=== PATIENT | female | born 1985 | race Two or more races ===

== ENCOUNTER 2017-03-27 05:33 | Inpatient (IN) | payer BC ==
[~2017-03-27 05:33] MED LIST: Citric Acid/Sodium Citrate Solution 30 ML Cup PO ONE; Lactated Ringers 1,000 ML IV SCH; Metoclopramide 10 MG/2 ML SDV IVPUSH ONE; Oxytocin/Lactated Ringers 10 UNIT/1,000 ML BAG IV SCH; Sodium Chloride 0.9% 10 ML Syringe FLUSH PRN; ceFAZolin 2 GM in Premix Bag 1 BAG IV ONE
[2017-03-27] MEDS ORDERED: Citric Acid/Sodium Citrate Solution 30 ML Cup ONE (06:18)
[2017-03-27] MEDS ORDERED: Bupivacaine 0.5% 30 ML SDV ONE (06:18)
[2017-03-27] MEDS ORDERED: Metoclopramide 10 MG/2 ML SDV ONE (06:18)
[2017-03-27] MEDS ORDERED: ceFAZolin 1 GM Vial ONE (06:41)
[2017-03-27] MEDS ORDERED: Ketorolac 30 MG/ML SDV ONE (06:41)
[2017-03-27] MEDS ORDERED: Phenylephrine 1% 10 MG/ML SDV ONE (06:41)
[2017-03-27] MEDS ORDERED: Ondansetron 4 MG/2 ML SDV ONE (06:41)
[2017-03-27] MEDS ORDERED: Oxytocin 10 Units/1 ML SDV ONE (06:41)
[2017-03-27] MEDS ORDERED: Lactated Ringers 1,000 ML ONE (06:41)
[2017-03-27] MEDS ORDERED: Morphine PF 10 MG/10 ML SDV ONE (06:42)
--- NOTE | 2017-03-27 06:50 | PCM.PREANE ---
Preanesthetic Assessment - Anesthesia/Transfusion/Family Hx Anesthesia History: Prior Anesthesia Without Reaction (only spinal anesthietics with previous c-sections) Family History of Anesthesia Reaction: No Transfusion History: No Prior Transfusion(s) Intubation History: Unknown - Review of Systems General: No Symptoms Pulmonary: No Symptoms Cardiovascular: No Symptoms Gastrointestinal: No symptoms (GERD), Constipation Neurological: No Symptoms Other: Reports: Easy Bruising, Thyroid Problems (hypothyroid) - Physical Assessment NPO Status Date: 03/26/17 NPO Status Time: 22:00 Pulse: 83 O2 Sat by Pulse Oximetry: 99 Respiratory Rate: 16 Blood Pressure: 106/84 Temperature: 36.2 C Vital Signs: Last Vital Signs Temp 36.2 C 03/27/17 05:55 Pulse 83 03/27/17 05:55 Resp 16 03/27/17 05:55 BP 106/84 03/27/17 05:55 Pulse Ox 99 03/27/17 05:55 Height: 1.57 m Weight: 80.286 kg ASA Class: 2 Mental Status: Alert & Oriented x3 Airway Class: Mallampati = 2 Dentition: Reports: Normal Dentition, Caries Thyro-Mental Finger Breadths: 3 Mouth Opening Finger Breadths: 3 ROM/Head Extension: Full Lungs: Clear to auscultation, Normal respiratory effort Cardiovascular: Regular Rate, Regular Rhythm, No Murmurs - Lab Values: Laboratory Last Values WBC 7.60 K/mm3 (3.98-10.04) 03/27/17 06:20 RBC 4.15 M/mm3 (3.98-5.22) 03/27/17 06:20 Hgb 12.1 gm/L (11.2-15.7) 03/27/17 06:20 Hct 36.3 % (34.1-44.9) 03/27/17 06:20 MCV 87.5 fl (79.4-94.8) 03/27/17 06:20 MCH 29.2 pg (25.6-32.2) 03/27/17 06:20 MCHC 33.3 g/dl (32.2-35.5) 03/27/17 06:20 RDW Std Deviation 43.7 fL (36.4-46.3) 03/27/17 06:20 Plt Count 223 K/mm3 (182-369) 03/27/17 06:20 MPV 9.6 fl (9.4-12.3) 03/27/17 06:20 Neut % (Auto) 64.1 % (34.0-71.1) 03/27/17 06:20 Lymph % (Auto) 24.7 % (19.3-51.7) 03/27/17 06:20 [place] % (Auto) 9.3 % (4.7-12.5) 03/27/17 06:20 Eos % (Auto) 1.1 (0.7-5.8) 03/27/17 06:20 Baso % (Auto) 0.1 % (0.1-1.2) 03/27/17 06:20 Neut # (Auto) 4.87 K/mm3 (1.56-6.13) 03/27/17 06:20 Lymph # (Auto) 1.88 K/mm3 (1.18-3.74) 03/27/17 06:20 [place] # (Auto) 0.71 K/mm3 (0.24-0.36) H 03/27/17 06:20 Eos # (Auto) 0.08 K/mm3 (0.04-0.36) 03/27/17 06:20 Baso # (Auto) 0.01 K/mm3 (0.01-0.08) 03/27/17 06:20 Above labs reviewed and noted. - Allergies Allergies/Adverse Reactions: Allergies Allergy/AdvReac Type Severity Reaction Status Date / Time No Known Allergies Allergy Verified 03/27/17 02:05 - Anesthesia Plan Pre-Op Medication Ordered: None - Acknowledgements Anesthesia Type Planned: Spinal Pt an Appropriate Candidate for the Planned Anesthesia: Yes Alternatives and Risks of Anesthesia Discussed w Pt/Guardian: Yes Pt/Guardian Understands and Agrees with Anesthesia Plan: Yes PreAnesthesia Questionnaire - Past Health History Medical/Surgical History: Denies Medical/Surgical History Other OB/BYN History: 2 prior c sections 2013, 2004 Endocrine/Metabolic History: Reports: Hypothyroidism - SUBSTANCE USE Smoking Status *Q: Never Smoker Recreational Drug Use History: No - CURRENT (IN HOUSE) MEDS Current Meds: Current Medications Lactated Ringer's (Ringers, Lactated) 1,000 mls @ 125 mls/hr IV ASDIRECTED JORDAN Oxytocin/Lactated Ringer's (Pitocin In Lr 10 Units/1,000 Ml) 10 unit in 1,000 mls @ 100 mls/hr IV ASDIRECTED JORDAN Sodium Chloride (Saline Flush) 10 ml FLUSH ASDIRECTED PRN PRN Reason: Keep Vein Open Discontinued Medications Bupivacaine HCl (Marcaine 0.5%) Confirm Administered Dose 30 ml .ROUTE .STK-MED ONE Stop: 03/27/17 06:19 Cefazolin Sodium (Ancef) Confirm Administered Dose 2 gm .ROUTE .STK-MED ONE Stop: 03/27/17 06:42 Citric Acid/Sodium Citrate (Bicitra Solution) 30 ml PO ONETIME ONE Stop: 03/27/17 01:52 Citric Acid/Sodium Citrate (Bicitra Solution) Confirm Administered Dose 30 ml .ROUTE .STK-MED ONE Stop: 03/27/17 06:19 Cefazolin Sodium/Dextrose 2 gm (/ Premix) 50 mls @ 100 mls/hr IV ONETIME ONE Stop: 03/27/17 02:20 Lactated Ringer's (Ringers, Lactated) Confirm Administered Dose 1,000 mls @ as directed .ROUTE .ST-MED ONE Stop: 03/27/17 06:42 Ketorolac Tromethamine (Toradol) Confirm Administered Dose 30 mg .ROUTE .ST- MED ONE Stop: 03/27/17 06:42 Metoclopramide HCl (Reglan) 10 mg IVPUSH ONETIME ONE Stop: 03/27/17 01:52 Metoclopramide HCl (Reglan) Confirm Administered Dose 10 mg .ROUTE .STK-MED ONE Stop: 03/27/17 06:19 Morphine Sulfate (Duramorph Pf) Confirm Administered Dose 10 mg .ROUTE .STK-MED ONE Stop: 03/27/17 06:43 Ondansetron HCl (Zofran) Confirm Administered Dose 4 mg .ROUTE .STK-MED ONE Stop: 03/27/17 06:42 Oxytocin (Pitocin) Confirm Administered Dose 20 unit .ROUTE .STK-MED ONE Stop: 03/27/17 06:42 Phenylephrine HCl (Denis-Synephrine) Confirm Administered Dose 10 mg .ROUTE .STK- MED ONE Stop: 03/27/17 06:42
--- NOTE | 2017-03-27 07:15 | PCM.LDHP ---
L&D History of Present Illness - General Date of Service: 03/27/17 Admit Problem/Dx: Patient Status Order with Admit Dx/Problem 03/27/17 01:51 Patient Status [ADT] Routine Admission Diagnosis/Problem Admission Diagnosis/Problem section Source of Information: Patient History Limitations: Reports: No Limitations - History of Present Illness Introduction:: 31-year-old 002 [place] 04/03/17 estimated gestational age 39 weeks 0 days patient has had 2 prior sections both in [place] plan repeat section today group B strep negative history of hypothyroidism blood type B+ antibody screen negative TSH 1.577 diabetes screen 104 hemoglobin hematocrit 11.3/34.4 platelets 275,000 B strep negative free T4 1.22. Accessory lobe to the placenta suggested on ultrasound will confirm N Location, : Reports: Abdomen, Lower back Quality: Reports: Ache, Dull, Pressure Severity: Mild Pain Score: 6 Improves with: Reports: None Worsens with: Reports: None Associated Symptoms: Reports: N - Related Data Allergies/Adverse Reactions: Allergies Allergy/AdvReac Type Severity Reaction Status Date / Time No Known Allergies Allergy Verified 03/27/17 02:05 Past Medical History - Past Health History Medical/Surgical History: Denies Medical/Surgical History Other OB/BYN History: 2 prior c sections 2013, 2004 Endocrine/Metabolic History: Reports: Hypothyroidism Social & Family History - Family History Family Medical History: Noncontributory - Tobacco Use Smoking Status *Q: Never Smoker - Caffeine Use Caffeine Use: Reports: Coffee Other Caffeine Use: 1 per day - Recreational Drug Use Recreational Drug Use: No H&P Review of Systems - Review of Systems: Review Of Systems: See Below General: Reports: No Symptoms HEENT: Reports: No Symptoms Pulmonary: Reports: No Symptoms Cardiovascular: Reports: No Symptoms Gastrointestinal: Reports: No Symptoms Genitourinary: Reports: No Symptoms Musculoskeletal: Reports: No Symptoms Skin: Reports: No Symptoms Psychiatric: Reports: No Symptoms Neurological: Reports: No Symptoms Hematologic/Lymphatic: Reports: No Symptoms Immunologic: Reports: No Symptoms L&D Exam - Exam Exam: See Below - Vital Signs Vital Signs: Last Vital Signs Temp 97.2 F 03/27/17 07:01 Pulse 83 03/27/17 07:01 Resp 16 03/27/17 07:01 BP 106/84 03/27/17 07:01 Pulse Ox 99 03/27/17 07:01 Weight: 177 lb - OB Specific Fundal Height In cm: 38 Contraction Duration (sec): 60 Contraction Frequency (min): 4 Contraction Intensity: Mild to Moderate Movement: Active Heart Tones: Present Heart Tones per Min: 140 Heart Rate (FHR) Variability: Moderate (6-25 bmp) Presentation: Vertex - Exam General: Alert, Oriented HEENT: Mucosa Moist & [place] Neck: Supple, Trachea Midline Lungs: Clear to Auscultation, Normal Respiratory Effort Cardiovascular: Regular Rate, Regular Rhythm Abdomen: Normal Bowel Sounds, Soft, Pelvis Stable Genitourinary: Normal external exam Extremities: Normal Inspection Skin: Warm, Dry, Intact Neurological: Reflexes Equal Bilateral Psychiatric: Alert, Normal Affect, Normal Mood - Patient Data Lab Results Last 24 hrs: Laboratory Results - last 24 hr 03/27/17 Range/Units 06:20 WBC 7.60 (3.98-10.04) K/mm3 RBC 4.15 (3.98-5.22) M/mm3 Hgb 12.1 (11.2-15.7) gm/L Hct 36.3 (34.1-44.9) % MCV 87.5 (79.4-94.8) fl MCH 29.2 (25.6-32.2) pg MCHC 33.3 (32.2-35.5) g/dl RDW Std Deviation 43.7 (36.4-46.3) fL Plt Count 223 (182-369) K/mm3 MPV 9.6 (9.4-12.3) fl Neut % (Auto) 64.1 (34.0-71.1) % Lymph % (Auto) 24.7 (19.3-51.7) % [place] % (Auto) 9.3 (4.7-12.5) % Eos % (Auto) 1.1 (0.7-5.8) Baso % (Auto) 0.1 (0.1-1.2) % Neut # (Auto) 4.87 (1.56-6.13) K/mm3 Lymph # (Auto) 1.88 (1.18-3.74) K/mm3 [place] # (Auto) 0.71 H (0.24-0.36) K/mm3 Eos # (Auto) 0.08 (0.04-0.36) K/mm3 Baso # (Auto) 0.01 (0.01-0.08) K/mm3 Result Diagrams: 03/27/17 06:20 - Problem List (1) delivery, delivered, current hospitalization SNOMED Code(s): 290588018 ICD Code: O82 - ENCOUNTER FOR DELIVERY WITHOUT INDICATION Status: Acute Current Visit: Yes (2) 39 weeks gestation of SNOMED Code(s): 06478545 ICD Code: Z3A.39 - 39 WEEKS GESTATION OF Status: Acute Current Visit: Yes (3) Accessory placenta SNOMED Code(s): 31197121 ICD Code: O43.199 - OTHER MALFORMATION OF PLACENTA, UNSPECIFIED TRIMESTER Status: Acute Current Visit: Yes Problem List Initiated/Reviewed/Updated: No Orders Last 24hrs: Active Orders 24 hr Category Date Time Status Patient Status [ADT] Routine ADT 03/27/17 01:51 Active Antiembolic Devices [RC] .Routine Care 03/27/17 01:56 Active Communication Order [RC] ROUTINE Care 03/27/17 01:51 Active Heart Tones [RC] PER UNIT ROUTINE Care 03/27/17 01:51 Active Peripheral IV Care [RC] . DIRECTED Care 03/27/17 01:52 Active Procedure Site Prep Instruct [RC] ASDIRECTED Care 03/27/17 01:51 Active VTE/DVT Education [RC] PER UNIT ROUTINE Care 03/27/17 01:56 Active Verify Patient Consent Obtain [RC] PER UNIT ROUTINE Care 03/27/17 01:51 Active Vital Signs [RC] PFP Care 03/27/17 01:51 Active TYPE AND SCREEN [BBK] Timed Lab 03/27/17 06:20 Received Lactated Ringers [Ringers, Lactated] 1,000 ml Med 03/27/17 02:00 Active IV ASDIRECTED Oxytocin/Lactated Ringers [Pitocin in LR 10 Units/1,000 Med 03/27/17 02:00 Active ML] 10 unit in 1,000 ml IV ASDIRECTED Sodium Chloride 0.9% [Saline Flush] Med 03/27/17 01:51 Active 10 ml FLUSH ASDIRECTED PRN DVT/VTE Prophylaxis Reflex [OM.PC] Routine Oth 03/27/17 01:51 Ordered Peripheral IV Insertion Adult [OM.PC] Routine Oth 03/27/17 01:51 Ordered Schedule Procedure [COMM] Per Unit Routine Oth 03/27/17 01:51 Ordered Resuscitation Status Routine Resus Stat 03/27/17 01:51 Ordered Medication Orders Lactated Ringer's (Ringers, Lactated) 1,000 mls @ 125 mls/hr IV ASDIRECTED JORDAN Oxytocin/Lactated Ringer's (Pitocin In Lr 10 Units/1,000 Ml) 10 unit in 1,000 mls @ 100 mls/hr IV ASDIRECTED JORDAN Sodium Chloride (Saline Flush) 10 ml FLUSH ASDIRECTED PRN PRN Reason: Keep Vein Open
[2017-03-27] MEDS ORDERED: ePHEDrine 50 MG/ML SDV IVPUSH PRN ×2 (08:08→09:09)
[2017-03-27] MEDS ORDERED: Ondansetron 4 MG/2 ML SDV IVPUSH PRN (08:08)
[2017-03-27] MEDS ORDERED: diphenhydrAMINE 50 MG/ML SDV IVPUSH PRN ×2 (08:08→09:09)
[2017-03-27] MEDS ORDERED: Meperidine PF 50 MG/ML Syringe IVPUSH PRN (08:08)
[2017-03-27] MEDS ORDERED: fentaNYL 100 MCG/2 ML SDV IVPUSH PRN (08:08)
[2017-03-27] MEDS ORDERED: HYDROmorphone 0.5 MG/0.5 ML Syringe IVPUSH PRN (08:08)
[2017-03-27] MEDS ORDERED: Phenylephrine 1 MG in Sodium Chloride 0.9% 10 ML IV SCH (08:15)
--- NOTE | 2017-03-27 08:50 | PCM.POSTAN ---
POST ANESTHESIA ASSESSMENT - MENTAL STATUS Mental Status: alert - VITAL SIGNS Pulse Rate: 75 SaO2: 96 Resp Rate: 12 Blood Pressure: 99/51 Temperature: 36.1 C - RESPIRATORY Respiratory Status: respiratory rate WNL, airway patent, O2 saturation stable - CARDIOVASCULAR CV Status: pulse rate WNL, blood pressure stable - GASTROINTESTINAL GI Status: no symptoms - POST OP HYDRATION Hydration Status: adequate & stable
--- NOTE | 2017-03-27 09:05 | PCM.OPNOTE ---
- General Post-Op/Procedure Note Date of Surgery/Procedure: 03/27/17 Operative Procedure(s): Repeat section Pre Op Diagnosis: Estimated gestational age 39 weeks, prior 2, 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 Post-Op Diagnosis: Same Anesthesia Technique: Spinal Primary Surgeon: Richard Tellez Secondary Surgeon: Igor Carrillo Anesthesia Provider: Sonya Dugan Nuclear Equipment Design Engineer: Sunshine Cotton (MS3) Fluid Replacement, Intraop: 1,000 Output, Urine Amount: 150 EBL in mLs: 500 Drain/Tube Comments:: Penn catheter Complications: None Condition: Good Free Text/Narrative:: General Post-Op/Procedure Note Date of Surgery/Procedure: 03/27/17 Operative Procedure(s): Repeat section Pre Op Diagnosis: 39 weeks gestation, prior section 2, 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 Post-Op Diagnosis: Same Anesthesia Technique: Spinal Primary Surgeon: Richard Tellez Secondary Surgeon: Igor Carrillo Anesthesia Provider: Sonya Dugan Nuclear Equipment Design Engineer: Sunshine Cotton (MS3) Fluid Replacement, Intraop: 1,000 Output, Urine Amount: 150 EBL in mLs: 500 Drain/Tube Comments:: Penn Complications: None Condition: Good Free Text/Narrative:: Patient was transported to operating room #[address] and functioning prior surgery Ancef 2 g given intravenously prior surgery spinal anesthesia placed patient Draped in sterile fashion timeout performed confirming name Ozzie Azar procedure repeat section adequate level of anesthesia was confirmed was brought to the operating room injecting 20 mL of 0.5% Marcaine without epinephrine area of the planned incision the Pfannenstiel incision was made and care was sharp section to into the anterior fascia peritoneal cavity entered without difficulty bladder flap created pushed caudad low segment transverse performed delivering a male liveborn 0809 hrs. on Monday03/27/17 weighing 8 lbs. 9 oz. Apgars 7/9 Dr. Tucker present and attended to the cord blood was collected from normal three-vessel cord placenta was removed manually and confirmed small approximately 8 x 8 cm excess relocated to the placenta placenta delivered Schultze manually discarded after examination. The endometrial cavity was inspected sponge needle pack asthma sharp count correct 1 the uterus closed in 2 layers first layer running locking suture of 0 Monocryl second layer horizontal imbricating suture modified [place] additional [id number] sutures taken in the midline in 3 areas for hemostasis both tubes and ovaries appeared normal clot screen from the gutters and cul-de-sac uterus pleasant abdominal cavity uterine incision reinspected no bleeding sponge needle pack asthma sharp count correct 2 and the abdominal cavity was closed with #1 PDS running suture irrigation carried out in the subcutaneous tissue and utilizing cautery to reduce scar tissue and allow better approximation of the skin closure the skin was closed with 3-0 Monocryl on Harvinder needle, Preneo applied patient transported to postanesthesia care unit in satisfactory condition no blood transfusions were required not anticipated Nusser condition should change clots were cleaned from the vagina prior to transport to postanesthesia care unit.
[2017-03-27] MEDS ORDERED: Acetaminophen 325 MG Tab PO PRN (09:09)
[2017-03-27] MEDS ORDERED: Lanolin 100% Cream 7 GM Tube TOP PRN (09:09)
[2017-03-27] MEDS ORDERED: Ondansetron 4 MG/2 ML SDV IV PRN (09:09)
[2017-03-27] MEDS ORDERED: Naloxone 0.4 MG/ML SDV IVPUSH PRN (09:09)
[2017-03-27] MEDS ORDERED: Docusate Sodium 100 MG Cap PO PRN (09:09)
[2017-03-27] MEDS ORDERED: Sodium Chloride 0.9% 10 ML Syringe FLUSH PRN (09:09)
[2017-03-27] MEDS ORDERED: Dextrose 5%-Lactated Ringers 1,000 ML IV SCH (09:15)
[2017-03-27] MEDS ORDERED: Dextrose 5%-0.45% NaCl 1,000 ML IV SCH (09:15)
[2017-03-27] MEDS: Simethicone 80 MG Tab.Chew PO SCH ×4 (10:28→21:46)
[2017-03-27] MEDS: Ketorolac 30 MG/ML SDV IVPUSH SCH ×2 (14:25→20:54)
[2017-03-28] MEDS: Ketorolac 30 MG/ML SDV IVPUSH SCH (02:32)
[2017-03-28] MEDS: Acetaminophen/oxyCODONE 325-5 MG Tab PO PRN ×2 (06:07→11:40)
[2017-03-28] MEDS ORDERED: Ibuprofen 600 MG Tab PO PRN (08:30)
--- NOTE | 2017-03-28 08:48 | PCM.PN ---
- General Info Date of Service: 03/28/17 Functional Status: Reports: pain controlled - Review of Systems General: Reports: No Symptoms HEENT: Reports: no symptoms Pulmonary: Reports: no symptoms Cardiovascular: Reports: No Symptoms Gastrointestinal: Reports: No symptoms Genitourinary: Reports: no symptoms Musculoskeletal: Reports: no symptoms Skin: Reports: no symptoms Neurological: Reports: No Symptoms Psychiatric: Reports: no symptoms - Patient Data Vitals - most recent: Last Vital Signs Temp 98.1 F 03/27/17 21:00 Pulse 76 03/27/17 21:00 Resp 14 03/28/17 06:56 BP 111/66 03/27/17 21:00 Pulse Ox 100 03/28/17 06:56 Weight - most recent: 177 lb I&O - last 24 hours: Intake & Output 03/27/17 03/28/17 03/28/17 22:59 06:59 14:59 Intake Total 1240 240 Output Total 825 1050 Balance 415 -1050 240 Lab Results last 24 hrs: Laboratory Results - last 24 hr 03/27/17 03/27/17 03/28/17 Range/Units 06:20 13:51 05:50 WBC 7.37 (3.98-10.04) K/mm3 RBC 3.93 L (3.98-5.22) M/mm3 Hgb 11.6 (11.2-15.7) gm/L Hct 34.7 (34.1-44.9) % MCV 88.3 (79.4-94.8) fl MCH 29.5 (25.6-32.2) pg MCHC 33.4 (32.2-35.5) g/dl RDW Std Deviation 44.2 (36.4-46.3) fL Plt Count 216 (182-369) K/mm3 MPV 10.1 (9.4-12.3) fl Neut % (Auto) 66.0 (34.0-71.1) % Lymph % (Auto) 23.6 (19.3-51.7) % [place] % (Auto) 9.2 (4.7-12.5) % Eos % (Auto) 0.8 (0.7-5.8) Baso % (Auto) 0.1 (0.1-1.2) % Neut # (Auto) 4.86 (1.56-6.13) K/mm3 Lymph # (Auto) 1.74 (1.18-3.74) K/mm3 [place] # (Auto) 0.68 H (0.24-0.36) K/mm3 Eos # (Auto) 0.06 (0.04-0.36) K/mm3 Baso # (Auto) 0.01 (0.01-0.08) K/mm3 [place] IgG Antibody Reactive (pos) (REACTIVE) Blood Type B POSITIVE Gel Antibody Screen Negative Med Orders - Current: Current Medications Acetaminophen (Tylenol) 650 mg PO Q4H PRN PRN Reason: mild pain or fever Diphenhydramine HCl (Benadryl) 25 mg IVPUSH Q6H PRN PRN Reason: Itching or Nausea Docusate Sodium (Colace) 100 mg PO Q12H PRN PRN Reason: Constipation Emollient Ointment (Lansinoh Hpa) 0 gm TOP ASDIRECTED PRN PRN Reason: Sore Nipples Ephedrine Sulfate (Ephedrine Sulfate) 5 mg IVPUSH SEECOMMENT PRN PRN Reason: Other Dextrose/Sodium Chloride (Dextrose 5%-1/2 Ns) 1,000 mls @ 125 mls/hr IV ASDIRECTED [facility] Last Admin: 03/27/17 14:28 Dose: 125 mls/hr Ibuprofen (Motrin) 600 mg PO Q6H PRN PRN Reason: mild pain or fever Levothyroxine Sodium ([facility]ine) [facility] Last Admin: 03/28/17 06:07 Dose: 175 mcg Naloxone HCl (Narcan) 0.1 mg IVPUSH SEECOMMENT PRN PRN Reason: Respiratory Depression Ondansetron HCl (Zofran) 4 mg IV Q8H PRN PRN Reason: Nausea/Vomiting Oxycodone/Acetaminophen (Percocet 325-5 Mg) 2 tab PO Q4H PRN PRN Reason: Pain (moderate 4-6) Last Admin: 03/28/17 06:07 Dose: 2 tab Simethicone (Simethicone) 80 mg PO PCBED [facility] Last Admin: 03/27/17 21:46 Dose: Not Given Sodium Chloride (Saline Flush) 10 ml FLUSH ASDIRECTED PRN PRN Reason: Keep Vein Open Discontinued Medications Bupivacaine HCl (Marcaine 0.5%) Confirm Administered Dose 30 ml .ROUTE .STK-MED ONE Stop: 03/27/17 06:19 Last Admin: 03/27/17 08:04 Dose: 20 ml Cefazolin Sodium (Ancef) Confirm Administered Dose 2 gm .ROUTE .STK-MED ONE Stop: 03/27/17 06:42 Citric Acid/Sodium Citrate (Bicitra Solution) 30 ml PO ONETIME ONE Stop: 03/27/17 01:52 Last Admin: 03/27/17 06:47 Dose: 30 ml Citric Acid/Sodium Citrate (Bicitra Solution) Confirm Administered Dose 30 ml .ROUTE .STK-MED ONE Stop: 03/27/17 06:19 Last Admin: 03/27/17 15:27 Dose: Not Given Diphenhydramine HCl (Benadryl) 25 mg IVPUSH Q6H PRN PRN Reason: pruritis Stop: 03/27/17 11:00 Ephedrine Sulfate (Ephedrine Sulfate) 5 mg IVPUSH ASDIRECTED PRN PRN Reason: Hypotension Stop: 03/27/17 11:00 Fentanyl (Sublimaze) 50 mcg IVPUSH Q5M PRN PRN Reason: Pain Stop: 03/27/17 08:24 Hydromorphone HCl (Dilaudid) 0.5 mg IVPUSH Q15M PRN PRN Reason: severe pain Stop: 03/27/17 08:24 Lactated Ringer's (Ringers, Lactated) 1,000 mls @ 125 mls/hr IV ASDIRECTED [facility] Oxytocin/Lactated Ringer's (Pitocin In Lr 10 Units/1,000 Ml) 10 unit in 1,000 mls @ 100 mls/hr IV ASDIRECTED [facility] Cefazolin Sodium/Dextrose 2 gm (/ Premix) 50 mls @ 100 mls/hr IV ONETIME ONE Stop: 03/27/17 02:20 Last Admin: 03/27/17 21:46 Dose: Not Given Lactated Ringer's (Ringers, Lactated) Confirm Administered Dose 1,000 mls @ as directed .ROUTE .STK-MED ONE Stop: 03/27/17 06:42 Phenylephrine HCl 1 mg/ Sodium (Chloride) 10.1 mls @ 1 mls/sec IV TITRATE JORDAN Stop: 03/27/17 11:00 Dextrose/Lactated Ringer's (Dextrose 5%-Lactated Ringers) 1,000 mls @ 125 mls/ hr IV ASDIRECTED JORDAN Stop: 03/27/17 17:14 Last Admin: 03/27/17 10:27 Dose: 125 mls/hr Ketorolac Tromethamine (Toradol) Confirm Administered Dose 30 mg .ROUTE .STK- MED ONE Stop: 03/27/17 06:42 Ketorolac Tromethamine (Toradol) 30 mg IVPUSH Q6H [facility] Stop: 03/28/17 02:31 Last Admin: 03/28/17 02:32 Dose: 30 mg Meperidine HCl (Demerol) 12.5 mg IVPUSH ONETIME PRN PRN Reason: shivering Stop: 03/28/17 08:09 Metoclopramide HCl (Reglan) 10 mg IVPUSH ONETIME ONE Stop: 03/27/17 01:52 Last Admin: 03/27/17 06:47 Dose: 10 mg Metoclopramide HCl (Reglan) Confirm Administered Dose 10 mg .ROUTE .STK-MED ONE Stop: 03/27/17 06:19 Last Admin: 03/27/17 15:27 Dose: Not Given Morphine Sulfate (Duramorph Pf) Confirm Administered Dose 10 mg .ROUTE .STK-MED ONE Stop: 03/27/17 06:43 Ondansetron HCl (Zofran) Confirm Administered Dose 4 mg .ROUTE .STK-MED ONE Stop: 03/27/17 06:42 Ondansetron HCl (Zofran) 4 mg IVPUSH ONETIME PRN PRN Reason: Nausea/Vomiting Stop: 03/27/17 11:00 Oxytocin (Pitocin) Confirm Administered Dose 20 unit .ROUTE .STK-MED ONE Stop: 03/27/17 06:42 Phenylephrine HCl (Denis-Synephrine) Confirm Administered Dose 10 mg .ROUTE .STK- MED ONE Stop: 03/27/17 06:42 Sodium Chloride (Saline Flush) 10 ml FLUSH ASDIRECTED PRN PRN Reason: Keep Vein Open - Exam General: alert, oriented HEENT: Mucous membr. moist/pink Neck: supple Lungs: Clear to auscultation, Normal respiratory effort Cardiovascular: Regular Rate, Regular Rhythm Extremities: no edema, no calf tenderness Skin: warm, dry, intact Wound/Incisions: healing well (breast feeding at visit) Psy/Mental Status: alert, normal affect, normal mood - Problem List & Annotations (1) delivery, delivered, current hospitalization SNOMED Code(s): 768018981 Code(s): O82 - ENCOUNTER FOR DELIVERY WITHOUT INDICATION Status: Acute Current Visit: Yes (2) 39 weeks gestation of SNOMED Code(s): 55582666 Code(s): Z3A.39 - 39 WEEKS GESTATION OF Status: Acute Current Visit: Yes (3) Accessory placenta SNOMED Code(s): 46523738 Code(s): O43.199 - OTHER MALFORMATION OF PLACENTA, UNSPECIFIED TRIMESTER Status: Acute Current Visit: Yes - Problem List Review Problem List Initiated/Reviewed/Updated: No - My Orders Last 24 Hours: My Active Orders 03/27/17 09:09 Ambulate [RC] PER UNIT ROUTINE May Shower [RC] PER UNIT ROUTINE Notify Provider Vital Signs [RC] ASDIRECTED RT Incentive Spirometry [RC] Q2HWA Acetaminophen [Tylenol] 650 mg PO Q4H PRN Acetaminophen/oxyCODONE [Percocet 325-5 MG] 2 tab PO Q4H PRN Docusate Sodium [Colace] 100 mg PO Q12H PRN Lanolin [Lansinoh HPA] See Dose Instructions TOP ASDIRECTED PRN Naloxone [Narcan] 0.1 mg IVPUSH SEECOMMENT PRN Ondansetron [Zofran] 4 mg IV Q8H PRN Sodium Chloride 0.9% [Saline Flush] 10 ml FLUSH ASDIRECTED PRN diphenhydrAMINE [Benadryl] 25 mg IVPUSH Q6H PRN ePHEDrine [ePHEDrine Sulfate] 5 mg IVPUSH SEECOMMENT PRN Abdominal Binder [OM.PC] Per Unit Routine Assess Lochia [WOMSER] Per Unit Routine Assess Uterine Involution [WOMSER] Per Unit Routine Breast Pump [WOMSER] Per Unit Routine Medication Administration Instruction [OM.PC] Routine Saline Lock Insert [OM.PC] Routine Sequential Compression Device [OM.PC] Per Unit Routine 03/27/17 09:10 Antiembolic Devices [RC] PER UNIT ROUTINE 03/27/17 09:15 Dextrose 5%-0.45% NaCl [Dextrose 5%-1/2 NS] 1,000 ml IV ASDIRECTED Simethicone 80 mg PO PCBED 03/27/17 Dinner Regular Diet [DIET] 03/27/17 Lunch Clear Liquid Diet [DIET] 03/28/17 06:00 Levothyroxine 175 mcg PO ACBREAKFAST 03/28/17 08:30 Ibuprofen [Motrin] 600 mg PO Q6H PRN - Plan Plan:: probably home tomorrow
[2017-03-28] MEDS: Simethicone 80 MG Tab.Chew PO SCH ×4 (11:30→23:25)
--- NOTE | 2017-03-28 12:28 | PCM48HPAN ---
Post Anesthesia Note - EVALUATION WITHIN 48HRS OF ANESTHETIC Vital Signs in Normal Range: Yes Patient Participated in Evaluation: Yes Respiratory Function Stable: Yes Airway Patent: Yes Cardiovascular Function Stable: Yes Hydration Status Stable: Yes Pain Control Satisfactory: Yes Nausea and Vomiting Control Satisfactory: Yes Mental Status Recovered: Yes
[2017-03-29] MEDS: Acetaminophen/oxyCODONE 325-5 MG Tab PO PRN (02:31)
[2017-03-29 03:09] VITALS: BP 110/68
--- NOTE | 2017-03-29 08:29 | PCM.DCSUM1 ---
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 Post-Op Diagnosis: Same Anesthesia Technique: Spinal Primary Surgeon: Richard Tellez Secondary Surgeon: Igor Carrillo Anesthesia Provider: Sonya Dugan Tipple Mechanic: Sunshine Cotton (MS3) Fluid Replacement, Intraop: 1,000 Output, Urine Amount: 150 EBL in mLs: 500 Drain/Tube Comments:: [facility] catheter Complications: None Condition: Good Free Text/Narrative:: General Post-Op/Procedure Note Date of Surgery/Procedure: 03/27/17 Operative Procedure(s): Repeat section Pre Op Diagnosis: 39 weeks gestation, prior section 2, 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 Post-Op Diagnosis: Same Anesthesia Technique: Spinal Primary Surgeon: Richard Tellez Secondary Surgeon: Igor Carrillo Anesthesia Provider: Sonya Dugan Tipple Mechanic: Sunshine Cotton (MS3) Fluid Replacement, Intraop: 1,000 Output, Urine Amount: 150 EBL in mLs: 500 Drain/Tube Comments:: [facility] Complications: None Condition: Good Free Text/Narrative:: Patient was transported to operating room #[address] and functioning prior surgery Ancef 2 g given intravenously prior surgery spinal anesthesia placed patient Draped in sterile fashion timeout performed confirming name Ozzie Azar procedure repeat section adequate level of anesthesia was confirmed was brought to the operating room injecting 20 mL of 0.5% Marcaine without epinephrine area of the planned incision the Pfannenstiel incision was made and care was sharp section to into the anterior fascia peritoneal cavity entered without difficulty bladder flap created pushed caudad low segment transverse performed delivering a male liveborn 0809 hrs. on Monday03/27/17 weighing 8 lbs. 9 oz. Apgars 7/9 Dr. Tucker present and attended to the cord blood was collected from normal three-vessel cord placenta was removed manually and confirmed small approximately 8 x 8 cm excess relocated to the placenta placenta delivered Schultze manually discarded after examination. The endometrial cavity was inspected sponge needle pack asthma sharp count correct 1 the uterus closed in 2 layers first layer running locking suture of 0 Monocryl second layer horizontal imbricating suture modified Johana additional [id number] sutures taken in the midline in 3 areas for hemostasis both tubes and ovaries appeared normal clot screen from the gutters and cul-de-sac uterus pleasant abdominal cavity uterine incision reinspected no bleeding sponge needle pack asthma sharp count correct 2 and the abdominal cavity was closed with #1 PDS running suture irrigation carried out in the subcutaneous tissue and utilizing cautery to reduce scar tissue and allow better approximation of the skin closure the skin was closed with 3-0 Monocryl on Harvinder needle, Preneo applied patient transported to postanesthesia care unit in satisfactory condition no blood transfusions were required not anticipated Nusser condition should change clots were cleaned from the vagina prior to transport to postanesthesia care unit. 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 Post-Op Diagnosis: Same Anesthesia Technique: Spinal Primary Surgeon: Richard Tellez Secondary Surgeon: Igor Carrillo Anesthesia Provider: Sonya Dugan Tipple Mechanic: Sunshine Cotton (MS3) Fluid Replacement, Intraop: 1,000 Output, Urine Amount: 150 EBL in mLs: 500 Drain/Tube Comments:: [facility] catheter Complications: None Condition: Good Free Text/Narrative:: General Post-Op/Procedure Note Date of Surgery/Procedure: 03/27/17 Operative Procedure(s): Repeat section Pre Op Diagnosis: 39 weeks gestation, prior section 2, 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 Post-Op Diagnosis: Same Anesthesia Technique: Spinal Primary Surgeon: Richard Tellez Secondary Surgeon: Igor Carrillo Anesthesia Provider: Sonya Dugan Tipple Mechanic: Sunshine Cotton (MS3) Fluid Replacement, Intraop: 1,000 Output, Urine Amount: 150 EBL in mLs: 500 Drain/Tube Comments:: [facility] Complications: None Condition: Good Free Text/Narrative:: Patient was transported to operating room #[address] and functioning prior surgery Ancef 2 g given intravenously prior surgery spinal anesthesia placed patient Draped in sterile fashion timeout performed confirming name Ozzie Askew procedure repeat section adequate level of anesthesia was confirmed was brought to the operating room injecting 20 mL of 0.5% Marcaine without epinephrine area of the planned incision the Pfannenstiel incision was made and care was sharp section to into the anterior fascia peritoneal cavity entered without difficulty bladder flap created pushed caudad low segment transverse performed delivering a male liveborn 0809 hrs. on Monday03/27/17 weighing 8 lbs. 9 oz. Apgars 7/9 Dr. Tucker present and attended to the cord blood was collected from normal three-vessel cord placenta was removed manually and confirmed small approximately 8 x 8 cm excess relocated to the placenta placenta delivered Schultze manually discarded after examination. The endometrial cavity was inspected sponge needle pack asthma sharp count correct 1 the uterus closed in 2 layers first layer running locking suture of 0 Monocryl second layer horizontal imbricating suture modified Johana additional [id number] sutures taken in the midline in 3 areas for hemostasis both tubes and ovaries appeared normal clot screen from the gutters and cul-de-sac uterus pleasant abdominal cavity uterine incision reinspected no bleeding sponge needle pack asthma sharp count correct 2 and the abdominal cavity was closed with #1 PDS running suture irrigation carried out in the subcutaneous tissue and utilizing cautery to reduce scar tissue and allow better approximation of the skin closure the skin was closed with 3-0 Monocryl on Harvinder needle, Preneo applied patient transported to postanesthesia care unit in satisfactory condition no blood transfusions were required not anticipated Nusser condition should change clots were cleaned from the vagina prior to transport to postanesthesia care unit. Brief History: [facility]IVE . Post-Op/Procedure Note. Patient Name: ALEJANDRA JONES CMedical Record Number: [id number]. Date of : Patient Status: Inpatient. Attending Provider: Richard Tellezount Number: [id number]. Date: 03/27/17 09:03Initialization Date: 03/27/17 09:03. - General Post-Op/Procedure Note. Date of Surgery/Procedure: 03/27/17. Operative Procedure(s): Repeat section. Pre Op Diagnosis: Estimated gestational age 39 weeks, prior 2, 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. Post-Op Diagnosis: Same. Anesthesia Technique: Spinal. Primary Surgeon: Richard Tellez. Secondary Surgeon: Igor Carrillo. Anesthesia Provider: Sonya Dugan. Tipple Mechanic: Sunshine Cotton (MS3). Fluid Replacement, Intraop: 1,000. Output, Urine Amount: 150. EBL in mLs: 500. Drain/Tube Comments:: [facility] catheter. Complications: None. Condition: Good. Free Text/ Narrative:: General Post-Op/Procedure Note. Date of Surgery/Procedure: . Operative Procedure(s): Repeat section. Pre Op Diagnosis: 39 weeks gestation, prior section 2, 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. Post-Op Diagnosis: Same. Anesthesia Technique: Spinal. Primary Surgeon: Richard Tellez. Secondary Surgeon: Igor Carrillo. Anesthesia Provider: Sonya Dugan. Tipple Mechanic: Sunshine Cotton (MS3). Fluid Replacement, Intraop: 1,000. Output, Urine Amount: 150. EBL in mLs: 500. Drain/Tube Comments:: [facility]. Complications: None. Condition: Good. Free Text/Narrative: : Patient was transported to operating room #[address] and functioning prior surgery Ancef 2 g given intravenously prior surgery spinal anesthesia placed patient Draped in sterile fashion timeout performed confirming name Ozzie Azar procedure repeat section adequate level of anesthesia was confirmed was brought to the operating room injecting 20 mL of 0.5% Marcaine without epinephrine area of the planned incision the Pfannenstiel incision was made and care was sharp section to into the anterior fascia peritoneal cavity entered without difficulty bladder flap created pushed caudad low segment transverse performed delivering a male liveborn 0809 hrs. on Monday03/27/17 weighing 8 lbs. 9 oz. Apgars 7/9 Dr. Tucker present and attended to the cord blood was collected from normal three-vessel cord placenta was removed manually and confirmed small approximately 8 x 8 cm excess relocated to the placenta placenta delivered Schultze manually discarded after examination. The endometrial cavity was inspected sponge needle pack asthma sharp count correct 1 the uterus closed in 2 layers first layer running locking suture of 0 Monocryl second layer horizontal imbricating suture modified Johana additional [id number] sutures taken in the midline in 3 areas for hemostasis both tubes and ovaries appeared normal clot screen from the gutters and cul-de-sac uterus pleasant abdominal cavity uterine incision reinspected no bleeding sponge needle pack asthma sharp count correct 2 and the abdominal cavity was closed with #1 PDS running suture irrigation carried out in the subcutaneous tissue and utilizing cautery to reduce scar tissue and allow better approximation of the skin closure the skin was closed with 3-0 Monocryl on Harvinder needle, Preneo applied patient transported to postanesthesia care unit in satisfactory condition no blood transfusions were required not anticipated Nusser condition should change clots were cleaned from the vagina prior to transport to postanesthesia care unit. 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 ICD Code: O43.199 - OTHER MALFORMATION OF PLACENTA, UNSPECIFIED TRIMESTER Status: Acute Current Visit: Yes Qualifiers: Trimester: third trimester Qualified Code(s): O43.193 - Other malformation of placenta, third trimester - Patient Summary/Data Operative Procedure(s) Performed: Repeat section Complications: None Consults: None Hospital Course: Uneventful - Patient Instructions Diet: Heart Healthy Diet Driving: Do Not Drive (4 weeks) Showering/Bathing: May Shower, No Tub Bathing/Swimming (6 weeks) Wound/Incision Care: Keep Operative Site/Wound Site Clean and Dry Notify Provider of: Fever, Increased Pain, Swelling and Redness, Drainage, Nausea and/or Vomiting - Discharge Plan Home Medications: Home Meds Acetaminophen [Tylenol] 650 mg PO Q6H PRN #0 tablet 03/29/17 [Rx] Acetaminophen/oxyCODONE [Percocet 325-5 MG] 1 tab PO Q6H PRN #30 tablet [Rx] Docusate Sodium [Colace] 100 mg PO Q12H PRN #0 cap 03/29/17 [Rx] Ibuprofen [IJD: Ibuprofen] 200 - 600 mg PO Q6H PRN tablet 03/29/17 [Rx] Simethicone 80 mg PO PCBED tab.chew 03/29/17 [Rx] Patient Handouts: Delivery, Care After, Home Care Instructions for Mom Referrals: Richard Tellez MD [Primary Care Provider] - (6 weeks) - Discharge Summary/Plan Comment DC Time >30 min.: No - Patient Data Vitals - Most Recent: Last Vital Signs Temp 97.2 F 03/29/17 02:32 Pulse 65 03/29/17 02:32 Resp 15 03/29/17 02:32 BP 110/68 03/29/17 02:32 Pulse Ox 98 03/29/17 02:32 Weight - Most Recent: 177 lb Med Orders - Current: Current Medications Acetaminophen (Tylenol) 650 mg PO Q4H PRN PRN Reason: mild pain or fever Diphenhydramine HCl (Benadryl) 25 mg IVPUSH Q6H PRN PRN Reason: Itching or Nausea Docusate Sodium (Colace) 100 mg PO Q12H PRN PRN Reason: Constipation Emollient Ointment (Lansinoh Hpa) 0 gm TOP ASDIRECTED PRN PRN Reason: Sore Nipples Ephedrine Sulfate (Ephedrine Sulfate) 5 mg IVPUSH SEECOMMENT PRN PRN Reason: Other Dextrose/Sodium Chloride (Dextrose 5%-1/2 Ns) 1,000 mls @ 125 mls/hr IV ASDIRECTED JORDAN Last Admin: 03/27/17 14:28 Dose: 125 mls/hr Ibuprofen (Motrin) 600 mg PO Q6H PRN PRN Reason: mild pain or fever Last Admin: 03/28/17 18:43 Dose: 600 mg Levothyroxine Sodium (Levothyroxine) 175 mcg PO ACBREAKFAST [facility] Last Admin: 03/29/17 05:56 Dose: 175 mcg Naloxone HCl (Narcan) 0.1 mg IVPUSH SEECOMMENT PRN PRN Reason: Respiratory Depression Ondansetron HCl (Zofran) 4 mg IV Q8H PRN PRN Reason: Nausea/Vomiting Oxycodone/Acetaminophen (Percocet 325-5 Mg) 2 tab PO Q4H PRN PRN Reason: Pain (moderate 4-6) Last Admin: 03/29/17 02:31 Dose: 2 tab Simethicone (Simethicone) 80 mg PO PCBED [facility] Last Admin: 03/28/17 23:25 Dose: Not Given Sodium Chloride (Saline Flush) 10 ml FLUSH ASDIRECTED PRN PRN Reason: Keep Vein Open Discontinued Medications Bupivacaine HCl (Marcaine 0.5%) Confirm Administered Dose 30 ml .ROUTE .STK-MED ONE Stop: 03/27/17 06:19 Last Admin: 03/27/17 08:04 Dose: 20 ml Cefazolin Sodium (Ancef) Confirm Administered Dose 2 gm .ROUTE .STK-MED ONE Stop: 03/27/17 06:42 Citric Acid/Sodium Citrate (Bicitra Solution) 30 ml PO ONETIME ONE Stop: 03/27/17 01:52 Last Admin: 03/27/17 06:47 Dose: 30 ml Citric Acid/Sodium Citrate (Bicitra Solution) Confirm Administered Dose 30 ml .ROUTE .STK-MED ONE Stop: 03/27/17 06:19 Last Admin: 03/27/17 15:27 Dose: Not Given Diphenhydramine HCl (Benadryl) 25 mg IVPUSH Q6H PRN PRN Reason: pruritis Stop: 03/27/17 11:00 Ephedrine Sulfate (Ephedrine Sulfate) 5 mg IVPUSH ASDIRECTED PRN PRN Reason: Hypotension Stop: 03/27/17 11:00 Fentanyl (Sublimaze) 50 mcg IVPUSH Q5M PRN PRN Reason: Pain Stop: 03/27/17 08:24 Hydromorphone HCl (Dilaudid) 0.5 mg IVPUSH Q15M PRN PRN Reason: severe pain Stop: 03/27/17 08:24 Lactated Ringer's (Ringers, Lactated) 1,000 mls @ 125 mls/hr IV ASDIRECTED [facility] Oxytocin/Lactated Ringer's (Pitocin In Lr 10 Units/1,000 Ml) 10 unit in 1,000 mls @ 100 mls/hr IV ASDIRECTED [facility] Cefazolin Sodium/Dextrose 2 gm (/ Premix) 50 mls @ 100 mls/hr IV ONETIME ONE Stop: 03/27/17 02:20 Last Admin: 03/27/17 21:46 Dose: Not Given Lactated Ringer's (Ringers, Lactated) Confirm Administered Dose 1,000 mls @ as directed .ROUTE .STK-MED ONE Stop: 03/27/17 06:42 Phenylephrine HCl 1 mg/ Sodium (Chloride) 10.1 mls @ 1 mls/sec IV TITRATE [facility] Stop: 03/27/17 11:00 Dextrose/Lactated Ringer's (Dextrose 5%-Lactated Ringers) 1,000 mls @ 125 mls/ hr IV ASDIRECTED [facility] Stop: 03/27/17 17:14 Last Admin: 03/27/17 10:27 Dose: 125 mls/hr Ketorolac Tromethamine (Toradol) Confirm Administered Dose 30 mg .ROUTE .STK- MED ONE Stop: 03/27/17 06:42 Ketorolac Tromethamine (Toradol) 30 mg IVPUSH Q6H JORDAN Stop: 03/28/17 02:31 Last Admin: 03/28/17 02:32 Dose: 30 mg Meperidine HCl (Demerol) 12.5 mg IVPUSH ONETIME PRN PRN Reason: shivering Stop: 03/28/17 08:09 Metoclopramide HCl (Reglan) 10 mg IVPUSH ONETIME ONE Stop: 03/27/17 01:52 Last Admin: 03/27/17 06:47 Dose: 10 mg Metoclopramide HCl (Reglan) Confirm Administered Dose 10 mg .ROUTE .STK-MED ONE Stop: 03/27/17 06:19 Last Admin: 03/27/17 15:27 Dose: Not Given Morphine Sulfate (Duramorph Pf) Confirm Administered Dose 10 mg .ROUTE .STK-MED ONE Stop: 03/27/17 06:43 Ondansetron HCl (Zofran) Confirm Administered Dose 4 mg .ROUTE .STK-MED ONE Stop: 03/27/17 06:42 Ondansetron HCl (Zofran) 4 mg IVPUSH ONETIME PRN PRN Reason: Nausea/Vomiting Stop: 03/27/17 11:00 Oxytocin (Pitocin) Confirm Administered Dose 20 unit .ROUTE .STK-MED ONE Stop: 03/27/17 06:42 Phenylephrine HCl (Denis-Synephrine) Confirm Administered Dose 10 mg .ROUTE .STFOURward Thought- MED ONE Stop: 03/27/17 06:42 Sodium Chloride (Saline Flush) 10 ml FLUSH ASDIRECTED PRN PRN Reason: Keep Vein Open *Q Meaningful Use (DIS) - VTE *Q VTE Criteria *Q: - Stroke *Q Stroke Criteria *Q: - AMI *Q AMI Criteria *Q:
== END 2017-03-29 08:50 | disposition home or self-care (01) | DRG 540 ==
LOC: JD.OB 05:33
PROVIDERS: ADMIT Obstetrics & Gynecology; ATTEND Obstetrics & Gynecology
PROC: 10D00Z1 Extraction of Products of Conception, Low, Open Approach (ICD-10-PCS; principal; 2017-03-27)
DX: O34.211 Maternal care for low transverse scar from previous cesarean delivery (principal); N85.8 Other specified noninflammatory disorders of uterus; Z3A.39 39 weeks gestation of pregnancy; Z37.0 Single live birth; O99.284 Endocrine, nutritional and metabolic diseases complicating childbirth; E03.9 Hypothyroidism, unspecified; O43.193 Other malformation of placenta, third trimester
CPT/HCPCS: 01961; 36415; 85025; 86762; 86850; 86900; 86901; 94762; A9270-GY; J0690; J1885; J2270; J2370; J2405; J2590; J2765; J7042; J7120

== ENCOUNTER 2019-06-09 22:28 | Emergency (ER) | payer BC ==
[2019-06-09 22:39] VITALS: BP 128/76; PULSE 68
[2019-06-09] MEDS ORDERED: Sodium Chloride 0.9% 10 ML Syringe FLUSH PRN (23:19)
[2019-06-09] MEDS ORDERED: Ondansetron 4 MG/2 ML SDV IVPUSH ONE (23:21)
[2019-06-09] MEDS ORDERED: Sodium Chloride 0.9% 1,000 ML IV SCH (23:30)
--- NOTE | 2019-06-10 01:25 | EDM.PDOC ---
ED HPI GENERAL MEDICAL PROBLEM - General Chief Complaint: Abdominal Pain Stated Complaint: ABDOMINAL PAIN Time Seen by Provider: 06/09/19 23:12 Source of Information: Reports: Patient, Family (spouse), RN Notes Reviewed (33- year-old female has been having some intermittent abdominal pain for the past week or so. Again today the pain is been more uncomfortable and especially this evening. He is primarily mid abdomen with some discomfort right upper abdomen. There is been occasional radiation to the right back. No fever or chills. No vomiting or diarrhea. No chest pain or difficulty breathing.) - History of Present Illness INITIAL COMMENTS - FREE TEXT/NARRATIVE: 33-year-old female comes in with abdominal pain, nausea and intermittent vomiting off-and-on for the past week or more. Pain has been primarily mid abdomen with some discomfort upper mid abdomen as well. She has had some voiding dysuria. No chest pain or difficulty breathing. She still does have her appendix and gallbladder. Abdominal Pain Score (Numeric/FACES): 8 - Related Data Allergies Allergy/AdvReac Type Severity Reaction Status Date / Time No Known Allergies Allergy Verified 06/09/19 22:39 Home Meds: Home Meds Levothyroxine 200 mcg PO DAILY 06/09/19 [History] Past Medical History - Past Health History Medical/Surgical History: Denies Medical/Surgical History Other [employer] History: 2 prior c sections 2013, 2004 Endocrine/Metabolic History: Reports: Hypothyroidism Social & Family History - Family History Family Medical History: Noncontributory - Tobacco Use Smoking Status *Q: Never Smoker - Caffeine Use Caffeine Use: Reports: Coffee Other Caffeine Use: 1 per day ED ROS GENERAL - Review of Systems Review Of Systems: See Below Constitutional: Denies: Fever, Chills HEENT: Reports: No Symptoms Respiratory: Denies: Shortness of Breath, Cough Cardiovascular: Denies: Chest Pain GI/Abdominal: Reports: Abdominal Pain, Nausea, Vomiting. Denies: Diarrhea : Reports: Dysuria Musculoskeletal: Reports: Back Pain (Occasional, no back pain at this time) Skin: Denies: Rash Neurological: Reports: No Symptoms ED EXAM, GI/ABD - Physical Exam Exam: See Below General Appearance: Alert, No Apparent Distress Throat/Mouth: Normal Inspection, Normal Oropharynx Head: Atraumatic. No: Facial Swelling Neck: Supple, Full Range of Motion Respiratory/Chest: No Respiratory Distress, Lungs Clear, Normal Breath Sounds Cardiovascular: Regular Rate, Rhythm GI/Abdominal Exam: Soft, Tender (There is mild tenderness mid abdomen and also very mild tenderness right upper abdomen. Lower abdomen is soft and nontender). No: Guarding, Rebound Extremities: Normal Inspection, Normal Range of Motion Neurological: Alert Skin Exam: Warm, Dry, Normal Color, No Rash Course - Vital Signs Last Recorded V/S: Last Vital Signs Temp 96.8 F 06/09/19 22:36 Pulse 68 06/09/19 22:36 Resp 16 06/09/19 22:36 BP 128/76 06/09/19 22:36 Pulse Ox 100 06/09/19 22:36 - Orders/Labs/Meds Orders: Active Orders 24 hr Category Date Time Status Peripheral IV Care [RC] . DIRECTED Care 06/09/19 23:20 Active Peripheral IV Insertion Adult [OM.PC] Stat Oth 06/09/19 23:19 Ordered Labs: Laboratory Tests 06/09/19 06/09/19 06/09/19 Range/Units 23:45 23:45 23:45 WBC 9.99 (3.98-10.04) K/mm3 RBC 4.81 (3.98-5.22) M/mm3 Hgb 13.9 (11.2-15.7) gm/dl Hct 41.8 (34.1-44.9) % MCV 86.9 (79.4-94.8) fl MCH 28.9 (25.6-32.2) pg MCHC 33.3 (32.2-35.5) g/dl RDW Std Deviation 40.2 (36.4-46.3) fL Plt Count 365 (182-369) K/mm3 MPV 10.4 (9.4-12.3) fl Neut % (Auto) 58.0 (34.0-71.1) % Lymph % (Auto) 34.1 (19.3-51.7) % Cross % (Auto) 6.4 (4.7-12.5) % Eos % (Auto) 1.0 (0.7-5.8) Baso % (Auto) 0.2 (0.1-1.2) % Neut # (Auto) 5.79 (1.56-6.13) K/mm3 Lymph # (Auto) 3.41 (1.18-3.74) K/mm3 Cross # (Auto) 0.64 H (0.24-0.36) K/mm3 Eos # (Auto) 0.10 (0.04-0.36) K/mm3 Baso # (Auto) 0.02 (0.01-0.08) K/mm3 Sodium 141 (136-145) mEq/L Potassium 3.7 (3.5-5.1) mEq/L Chloride 105 (98-107) mEq/L Carbon Dioxide 27 (21-32) mEq/L Anion Gap 12.7 (5-15) BUN 11 (7-18) mg/dL Creatinine 0.6 (0.55-1.02) mg/dL Est Cr Clr Drug Dosing 112.38 mL/min Estimated GFR (MDRD) > 60 (>60) mL/min BUN/Creatinine Ratio 18.3 H (14-18) Glucose 105 (74-106) mg/dL Calcium 10.0 (8.5-10.1) mg/dL Total Bilirubin 0.2 (0.2-1.0) mg/dL AST 16 (15-37) U/L ALT 20 (14-59) U/L Alkaline Phosphatase 100 (46-116) U/L C-Reactive Protein 0.8 (<1.0) mg/dL Total Protein 7.6 (6.4-8.2) g/dl Albumin 4.1 (3.4-5.0) g/dl Globulin 3.5 gm/dL Albumin/Globulin Ratio 1.2 (1-2) HCG, Qual (NEGATIVE) Urine Color (Yellow) Urine Appearance (Clear) Urine pH (5.0-8.0) Ur Specific [place] (1.005-1.030) Urine Protein (Negative) Urine Glucose (UA) (Negative) Urine Ketones (Negative) Urine Occult Blood (Negative) Urine Nitrite (Negative) Urine Bilirubin (Negative) Urine Urobilinogen (0.2-1.0) Ur Leukocyte Esterase (Negative) Urine RBC (0-5) /hpf Urine WBC (0-5) /hpf Ur Epithelial Cells (0-5) /hpf Urine Bacteria (FEW) /hpf Urine Mucus (FEW) /hpf 06/09/19 06/09/19 Range/Units 23:45 23:49 WBC (3.98-10.04) K/mm3 RBC (3.98-5.22) M/mm3 Hgb (11.2-15.7) gm/dl Hct (34.1-44.9) % MCV (79.4-94.8) fl MCH (25.6-32.2) pg MCHC (32.2-35.5) g/dl RDW Std Deviation (36.4-46.3) fL Plt Count (182-369) K/mm3 MPV (9.4-12.3) fl Neut % (Auto) (34.0-71.1) % Lymph % (Auto) (19.3-51.7) % Cross % (Auto) (4.7-12.5) % Eos % (Auto) (0.7-5.8) Baso % (Auto) (0.1-1.2) % Neut # (Auto) (1.56-6.13) K/mm3 Lymph # (Auto) (1.18-3.74) K/mm3 Cross # (Auto) (0.24-0.36) K/mm3 Eos # (Auto) (0.04-0.36) K/mm3 Baso # (Auto) (0.01-0.08) K/mm3 Sodium (136-145) mEq/L Potassium (3.5-5.1) mEq/L Chloride (98-107) mEq/L Carbon Dioxide (21-32) mEq/L Anion Gap (5-15) BUN (7-18) mg/dL Creatinine (0.55-1.02) mg/dL Est Cr Clr Drug Dosing mL/min Estimated GFR (MDRD) (>60) mL/min BUN/Creatinine Ratio (14-18) Glucose (74-106) mg/dL Calcium (8.5-10.1) mg/dL Total Bilirubin (0.2-1.0) mg/dL AST (15-37) U/L ALT (14-59) U/L Alkaline Phosphatase (46-116) U/L C-Reactive Protein (<1.0) mg/dL Total Protein (6.4-8.2) g/dl Albumin (3.4-5.0) g/dl Globulin gm/dL Albumin/Globulin Ratio (1-2) HCG, Qual Negative (NEGATIVE) Urine Color Yellow (Yellow) Urine Appearance Clear (Clear) Urine pH 6.0 (5.0-8.0) Ur Specific [place] 1.010 (1.005-1.030) Urine Protein Negative (Negative) Urine Glucose (UA) Negative (Negative) Urine Ketones Negative (Negative) Urine Occult Blood 1+ H (Negative) Urine Nitrite Negative (Negative) Urine Bilirubin Negative (Negative) Urine Urobilinogen 0.2 (0.2-1.0) Ur Leukocyte Esterase Negative (Negative) Urine RBC 0-5 (0-5) /hpf Urine WBC 0-5 (0-5) /hpf Ur Epithelial Cells 0-5 (0-5) /hpf Urine Bacteria Rare (FEW) /hpf Urine Mucus Not seen (FEW) /hpf Meds: Medications Discontinued Medications Generic Name Dose Route Start Last Admin Trade Name Freq PRN Reason Stop Dose Admin Hydromorphone HCl 0.5 mg 06/10/19 01:37 06/10/19 01:45 Dilaudid IVPUSH 06/10/19 01:38 0.5 mg ONETIME ONE Administration Sodium Chloride 1,000 mls @ 999 mls/hr 06/09/19 23:30 06/09/19 23:46 Normal Saline IV 999 mls/hr ONETIME JORDAN Administration Ondansetron HCl 4 mg 06/09/19 23:21 06/09/19 23:47 Zofran IVPUSH 06/09/19 23:22 4 mg ONETIME ONE Administration Sodium Chloride 10 ml 06/09/19 23:19 06/09/19 23:46 Saline Flush FLUSH 10 ml ASDIRECTED PRN Administration Keep Vein Open - Re-Assessments/Exams Free Text/Narrative Re-Assessment/Exam: 06/10/19 04:16 Labs did come back relatively normal, UA was clear with no evidence for infection. On repeat exam she continued to have some tenderness of the right upper abdomen although not severe. I did offer the option of staying here in the ED until 7:30 this morning and getting an ultrasound of gallbladder that time. She and her prefer to go home at this time and to have this done outpatient in the next day or 2. Discharge instructions as documented. Departure - Departure Time of Disposition: 01:41 Disposition: Home, Self-Care 01 Condition: Fair Clinical Impression: Abdominal pain Qualifiers: Abdominal location: right upper quadrant Qualified Code(s): R10.11 - Right upper quadrant pain - Discharge Information Instructions: Abdominal Pain, Adult, [id number] Referrals: Haily Kim MD [Primary Care Provider] - Forms: ED Department Discharge Additional Instructions: Clear liquids and very bland diet as tolerated, avoid all fatty foods for now. Coffee, tea and all other clear liquids are okay. Avoid all fried foods, carbohydrate and protein type foods are okay as tolerated. An order for ultrasound of her gallbladder has been written. Radiology will call you this morning some time after 8:00 to get you scheduled for that. Nothing to eat or drink for the 6 hours before you come in to get that done. Follow up with Char Mallory at [facility] for ultrasound results, call clinic for appointment. Return to ED as needed if symptoms worsening in any way. - My Orders Last 24 Hours: My Active Orders 06/09/19 23:19 Peripheral IV Insertion Adult [OM.PC] Stat 06/09/19 23:20 Peripheral IV Care [RC] . DIRECTED - Assessment/Plan Last 24 Hours: My Active Orders 06/09/19 23:19 Peripheral IV Insertion Adult [OM.PC] Stat 06/09/19 23:20 Peripheral IV Care [RC] . DIRECTED
[2019-06-10] MEDS ORDERED: HYDROmorphone 0.5 MG/0.5 ML Syringe IVPUSH ONE (01:37)
== END 2019-06-10 02:15 | disposition home or self-care (01) ==
LOC: JD.ED 22:28
DX: R10.11 Right upper quadrant pain (principal); E03.9 Hypothyroidism, unspecified; Z79.899 Other long term (current) drug therapy
CPT/HCPCS: 36415; 80053; 81001; 84703; 85025; 86140; 96361; 96374; 96375; 99284; J1170; J2405; J7040

== ENCOUNTER 2024-11-02 05:35 | Emergency (ER) | payer BC ==
[2024-11-02 05:43] VITALS: BP 123/78; PULSE 78
[2024-11-02] MEDS ORDERED: Sodium Chloride 0.9% 10 ML Syringe FLUSH PRN (05:51)
[2024-11-02] MEDS: Lactated Ringers 1,000 ML IV ONE (06:07)
[2024-11-02 06:15] LABS: APPEARANCE,URINE CLEAR (Clear); BASOPHILS PERCENT AUTO 0.3 % (0.0-1.0); BILIRUBIN,URINE NEGATIVE (Negative); COLOR,URINE LIGHT YELLOW (Yellow); EOSINOPHILS PERCENT AUTO 0.1 % (0.0-6.0); GLUCOSE,URINE NEGATIVE (Negative); HEMATOCRIT 44.4 % (37.0-47.0); HEMOGLOBIN 14.9 gm/dl (12.0-16.0); IMMATURE GRAN ABSOLUTE AUTO 0.02 K/mm3 (0.00-0.05); IMMATURE GRAN PERCENT AUTO 0.2 % (0.0-0.4); KETONES,URINE NEGATIVE (Negative); LEUKOCYTE ESTERASE,URINE NEGATIVE (Negative); LYMPHOCYTES ABSOLUTE AUTO 1.5 K/mm3 (1.0-4.8); LYMPHOCYTES PERCENT AUTO 17.3 % (24.0-44.0); MEAN CORPUSCULAR HEMOGLOBIN 28.9 pg (28.0-32.0); MEAN CORPUSCULAR HGB CONC 33.6 g/dl (32.0-36.0); MEAN CORPUSCULAR VOLUME 86.2 fl (83.0-99.0); MEAN PLATELET VOLUME 9.1 fl (9.4-12.3); MONOCYTES ABSOLUTE AUTO 0.3 K/mm3 (0.0-0.8); MONOCYTES PERCENT AUTO 3.3 % (0.0-8.0); NEUTROPHILS PERCENT AUTO 78.8 % (41.0-71.0); NITRITE,URINE NEGATIVE (Negative); OCCULT BLOOD,URINE 2+ (Negative); PLATELET COUNT,PLT 333 K/mm3 (150-400); PROTEIN,URINE NEGATIVE (Negative); RED BLOOD CELL COUNT 5.15 M/mm3 (4.10-5.30); UROBILINOGEN,URINE 0.2 (0.2-1.0); WHITE BLOOD CELL COUNT,WBC 8.89 K/mm3 (3.9-11.3)
[2024-11-02 06:34] LABS: BACTERIA,URINE RARE /hpf (FEW); MUCUS,URINE RARE /hpf (FEW); SQUAMOUS EPITHELIAL CELLS,UR 0-5 /hpf (0-5); WBC,URINE 0-5 /hpf (0-5)
[2024-11-02 06:37] LABS: A/G RATIO 1.1 (1-2); ANION GAP 13.9 (5-15); BILIRUBIN TOTAL 0.3 mg/dL (0.2-1.0); BUN/CREATININE RATIO 17.5 (14-18); CREATININE 0.8 mg/dL (0.55-1.02); EST CRCL DRUG DOSING (CG) 86.64 mL/min; POTASSIUM,K 3.9 mEq/L (3.5-5.1); PROTEIN TOTAL,TP 7.5 g/dl (6.4-8.2)
[2024-11-02] MEDS: Ketorolac 15 MG/ML SDV IVPUSH ONE (06:46)
[2024-11-02] MEDS: Sodium Chloride 0.9% 100 ML IV SCH (07:03)
[2024-11-02] MEDS: Iopamidol 612 MG/ML 100 ML Bottle IVPUSH ONE (07:03)
== END 2024-11-02 07:51 | disposition home or self-care (01) ==
LOC: JD.ED 05:35
DX: N13.2 Hydronephrosis with renal and ureteral calculous obstruction (principal); E03.9 Hypothyroidism, unspecified; Z79.890 Hormone replacement therapy; Z79.899 Other long term (current) drug therapy
CPT/HCPCS: 36415; 74177; 80053; 81001; 83690; 84703; 85025; 96361; 96374; 99284; J1885; J7120; Q9967